=== PATIENT | female | born 2000 | race Two or more races ===

== ENCOUNTER → 2022-09-18 | Emergency (ER) | payer OTHER ==
[~2022-09-18] VITALS: Ht 162.6 cm; Wt 61.2 kg
[~2022-09-18] MED LIST: BENADRYL25 MG; ZYRTEC10 M3 PO
== END | disposition home or self-care (01) ==
LOC: ER 13:33
DX: S80.212A Abrasion, left knee, initial encounter (principal); W19.XXXA Unspecified fall, initial encounter; Y93.89 Activity, other specified; Y92.89 Other specified places as the place of occurrence of the external cause; Y99.8 Other external cause status